=== PATIENT | female | born 1960 | race American Indian/Alaskan Native ===

== ENCOUNTER 2018-07-18 02:42 | Emergency (ER) | payer MEDICARE ==
--- NOTE | 2018-07-18 02:50 | ED PDOC ---
Arrival/HPI - General Time Seen by Provider: 07/18/18 02:45 Historian: Patient - History of Present Illness Narrative History of Present Illness (Text): 07/18/18 02:50 Carrie Braxton is a 58 year old female, whose past medical history includes hypertension, CAD, anemia, asthma, and alcohol abuse, who presents to the Emergency department brought in by EMS status post mechanical fall. Patient states she was walking when she slipped on fell on to her left knee. Patient also reports she hit her head. Patient now complaining of left knee pain. Patient denies any loss of consciousness, headache, dizziness, vision changes, weakness/numbness/tingling in the extremity, decreased range of motion, difficulty ambulating, other trauma/injury, or any other complaints. Symptom Onset: Gradual Symptom Course: Unchanged Activities at Onset: Light Context: Walking, Slipped Past Medical History - Provider Review Nursing Documentation Reviewed: Yes - Infectious Disease Hx of Infectious Diseases: None - Cardiac Hx Coronary Artery Disease: Yes Hx Hypertension: Yes Hx Mitral Valve Prolapse: Yes (VALVE REPLACEMENT) - Pulmonary Hx Asthma: Yes Hx Chronic Obstructive Pulmonary Disease (COPD): Yes - Neurological Hx Seizures: No - Hematological/Oncological Hx Anemia: Yes - Musculoskeletal/Rheumatological Hx Fractures: Yes (broken ankles; one in 2013, one in 2014) - Gastrointestinal Hx Gastroesophageal Reflux: Yes - Genitourinary/Gynecological Hx Sexually Transmitted Diseases: No - Psychiatric Hx Substance Use: No - Surgical History Hx Coronary Artery Bypass Graft: Yes - Anesthesia Hx Anesthesia: Yes Hx Anesthesia Reactions: No Hx Malignant Hyperthermia: No - Suicidal Assessment Feels Threatened In Home Enviroment: No Family/Social History - Physician Review Nursing Documentation Reviewed: Yes Family/Social History: Unknown Family HX Smoking Status: Former Smoker Hx Alcohol Use: Yes Hx Substance Use: No Allergies/Home Meds Allergies/Adverse Reactions: Allergies No Known Allergies Allergy (Verified 06/15/18 22:18) Home Medications: Home Meds Medication Instructions Recorded Confirmed amLODIPine [Norvasc] 5 mg PO DAILY 09/14/17 03/20/18 Aspirin [Ecotrin] 81 mg PO DAILY 03/20/18 03/20/18 Folic Acid 1 mg PO DAILY 03/20/18 03/20/18 Losartan/Hydrochlorothiazide 1 each PO DAILY 03/20/18 03/20/18 [Losartan-Hctz 50-12.5 mg Tab] Multivitamins [Hexavitamin] 1 tab PO DAILY 03/20/18 03/20/18 Pantoprazole [Protonix EC Tab] 40 mg PO DAILY 03/20/18 03/20/18 Pravastatin Sodium 40 mg PO DAILY 03/20/18 03/20/18 Thiamine [Vitamin B1 Tab] 100 mg PO DAILY 03/20/18 03/20/18 Review of Systems - Physician Review All systems were reviewed & negative as marked: Yes - Review of Systems Constitutional: Normal. absent: Fevers Eyes: Normal ENT: Normal Respiratory: Normal. absent: SOB, Cough Cardiovascular: Normal. absent: Chest Pain Gastrointestinal: Normal. absent: Abdominal Pain, Diarrhea, Nausea, Vomiting Genitourinary Female: Normal. absent: Dysuria, Frequency, Hematuria, Urine Output Changes Musculoskeletal: Arthralgias (+left knee pain). absent: Back Pain, Neck Pain Skin: Normal. absent: Rash Neurological: Normal. absent: Headache, Dizziness Endocrine: Normal Hemo/Lymphatic: Normal Psychiatric: Normal Physical Exam Vital Signs Reviewed: Yes Temperature: Afebrile Blood Pressure: Normal Pulse: Regular Respiratory Rate: Normal Appearance: Positive for: Well-Appearing, Non-Toxic, Comfortable Pain Distress: None Mental Status: Positive for: Alert and Oriented X 3 - Systems Exam Head: Present: Atraumatic, Normocephalic Pupils: Present: PERRL Extroacular Muscles: Present: EOMI Conjunctiva: Present: Normal Mouth: Present: Moist Mucous Membranes Neck: Present: Normal Range of Motion Respiratory/Chest: Present: Clear to Auscultation, Good Air Exchange. No: Respiratory Distress, Accessory Muscle Use Cardiovascular: Present: Regular Rate and Rhythm, Normal S1, S2. No: Murmurs Abdomen: No: Tenderness, Distention, Peritoneal Signs Back: Present: Normal Inspection Upper Extremity: Present: Normal Inspection. No: Cyanosis, Edema Lower Extremity: Present: NORMAL PULSES, Normal ROM, Tenderness (Mild discomfort with left knee flexion), Neurovascularly Intact, Capillary Refill < 2 s, Other (Old scabbed wound to left knee skin surface). No: Edema, Cyanosis, Swelling, Erythema, Deformity, Temperature Abnormalties Neurological: Present: GCS=15, CN II-XII Intact, Speech Normal Skin: Present: Warm, Dry, Normal Color. No: Rashes Psychiatric: Present: Alert, Oriented x 3, Normal Insight, Normal Concentration Medical Decision Making ED Course and Treatment: 07/18/18 02:50 Impression: 58 year old female complaining of left knee pain s/p fall. Plan: -- CT Head w/o contrast -- XR Left Knee -- Reassess and disposition Prior Visits: Notes and results from previous visits were reviewed. Progress Notes: 07/18/18 05:13 Reviewed radioogy, CT Head: There is normal configuration of sella turcica. There are no intra or extra- axial collections. There is no mass effect or midline shift. There is no evidence of hematoma formation. No hydrocephalus is present. The ventricles are symmetrical. No abnormal calcifications are present. There is diffuse age-appropriate cerebellar and cerebral atrophy with proportionally dilated ventricles and cortical sulci. There are bilateral periventricular and subcortical white matter hypolucencies compatible with mild chronic microvascular disease. Otherwise, no significant focal abnormalities are seen either in the posterior fossa or supratentorial compartment. Moderate chronic mucosal inflammatory changes of ethmoid air cells. IMPRESSION: 1. Age-appropriate cerebellar and cerebral atrophy. 2. Mild chronic microvascular disease. 3. No evidence of acute intracranial pathology. Thank you for your kind referral of this patient. Electronically signed on Jul 18, 2018 4:11:45 AM EST by: Juanita Hackett M.D., Certified by AKTALINA MORGAN, Neuroradiology XR Left Knee: Findings: There are tricompartmental changes of degenerative joint disease. Findings are demonstrated by joint space narrowing, osteophyte formation and subchondral sclerosis. No fracture or dislocation is seen. No lytic or blastic lesion is appreciated. There is mild suprapatellar knee joint effusion. There is no evidence radiopaque foreign body. Ligamentous calcification is noted at the femoral insertion of the medial collateral ligament. Mild prepatellar/infrapatellar soft tissue edema. Impression: No radiographic evidence of acute bone pathology. Electronically signed on Jul 18, 2018 5:05:11 AM EST by: Juanita Hackett M.D., Certified by KATALINA MORGAN, Neuroradiology - RAD Interpretation Air Analysis Technician: ED Physician, Radiologist - Scribe Statement The provider has reviewed the documentation as recorded by the Carisa Parra Provider Scribe Attestation: All medical record entries made by the Scribe were at my direction and personally dictated by me. I have reviewed the chart and agree that the record accurately reflects my personal performance of the history, physical exam, medical decision making, and the department course for this patient. I have also personally directed, reviewed, and agree with the discharge instructions and disposition. Disposition/Present on Arrival - Present on Arrival Any Indicators Present on Arrival: No History of DVT/PE: No History of Uncontrolled Diabetes: Yes Urinary Catheter: No History of Decub. Ulcer: No History Surgical Site Infection Following: None - Disposition Have Diagnosis and Disposition been Completed?: Yes Diagnosis: Knee strain, Minor head injury Disposition: HOME/ ROUTINE Disposition Time: 06:00 Patient Plan: Discharge Condition: STABLE Discharge Instructions (ExitCare): Muscle Strain (DC), Minor Head Injury (DC) Additional Instructions: Rest/no strenuous physical activity/follow up with your doctor Referrals: Radha Valiente MD [Primary Care Provider] - Follow up with primary
[2018-07-18 02:58] VITALS: TEMP 97.8; BMI 20.1
[2018-07-18 06:24] VITALS: BP 126/87; PULSE 72; RESP 14; O2SAT 100
--- NOTE | 2018-07-18 09:05 | CT ---
Date of service: 07/18/2018 PROCEDURE: CT HEAD WITHOUT CONTRAST. HISTORY: injury COMPARISON: None available. TECHNIQUE: Axial computed tomography images were obtained through the head/brain without intravenous contrast. Radiation dose: Total exam DLP = 723.47 mGy-cm. This CT exam was performed using one or more of the following dose reduction techniques: Automated exposure control, adjustment of the mA and/or kV according to patient size, and/or use of iterative reconstruction technique. FINDINGS: HEMORRHAGE: No intracranial hemorrhage. BRAIN: No mass effect or edema. There is moderate atrophy especially in the cerebellum. VENTRICLES: Unremarkable. No hydrocephalus. CALVARIUM: Unremarkable. PARANASAL SINUSES: Unremarkable as visualized. No significant inflammatory changes. MASTOID AIR CELLS: Unremarkable as visualized. No inflammatory changes. OTHER FINDINGS: The report concurs with the preliminary [facility] report IMPRESSION: No acute findings
--- NOTE | 2018-07-18 12:45 | RAD ---
Date of service: 07/18/2018 PROCEDURE: Left Knee Radiographs. HISTORY: Pain. COMPARISON: None. FINDINGS: BONES: Normal. No fracture. JOINTS: Normal. No osteoarthritis. JOINT EFFUSION: None. OTHER FINDINGS: There is calcification of the attachment of the medial collateral ligament. The report concurs with the preliminary [facility] report IMPRESSION: No acute findings
== END 2018-07-18 06:23 | disposition home or self-care (01) ==
LOC: ED 02:42
DX: S09.90XA Unspecified injury of head, initial encounter (principal); S86.912A Strain of unspecified muscle(s) and tendon(s) at lower leg level, left leg, initial encounter; W01.0XXA Fall on same level from slipping, tripping and stumbling without subsequent striking against object, initial encounter; I10 Essential (primary) hypertension; I25.10 Atherosclerotic heart disease of native coronary artery without angina pectoris; Z87.891 Personal history of nicotine dependence

== ENCOUNTER 2018-07-24 11:49 | Emergency (ER) | payer MEDICARE ==
[2018-07-24 11:50] VITALS: BMI 20.1
[2018-07-24 12:03] VITALS: RESP 18; TEMP 97.6
--- NOTE | 2018-07-24 13:42 | RAD ---
Date of service: 07/24/2018 PROCEDURE: Bilateral Knee Radiographs. HISTORY: Knee pain s/p trauma COMPARISON: None. FINDINGS: BONES: No evidence of acute displaced fracture nor dislocation. The osseous structures appear intact. 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 JOINTS: Tiny right-sided posterior patella osteophyte formation.. Joint spaces relatively preserved SOFT TISSUES: Mild right and minimal left prepatellar soft tissue swelling. Vascular calcifications are present bilaterally. JOINT EFFUSION: Suspect trace bilateral joint effusions. OTHER FINDINGS: None. IMPRESSION: No acute fractures. There is mild right and minimal left-sided prepatellar soft tissue swelling. 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
--- NOTE | 2018-07-24 13:43 | RAD ---
Date of service: 07/24/2018 PROCEDURE: HISTORY: right hip pain s/p trauma COMPARISON: No prior study available for comparison TECHNIQUE: Frontal view of the pelvis and frontal/frogleg lateral views both hips performed. FINDINGS: No evidence of acute displaced fracture nor dislocation. The osseous structures intact. Both femoral heads appropriately located within the respective acetabula. Joint spaces relatively preserved IMPRESSION: No acute fracture seen. If symptoms persist or occult fracture suspected clinically, consider follow-up CT scan
--- NOTE | 2018-07-24 13:56 | ED PDOC ---
Arrival/HPI - General Chief Complaint: Lower Extremity Problem/Injury Time Seen by Provider: 07/24/18 11:58 Historian: Patient - History of Present Illness Narrative History of Present Illness (Text): 07/24/18 13:51 58yo female with history of alcohol abuse bib EMS for complaint of right knee/hip pain x 5days. Patient notes that pain started s/p a fall. States she did not see any doctor for the pain. States she called EMS for the persistent pain. She did not take any medication for the pain. Able to ambulate with a cane. Denies calf pain, focal weakness, paresthesia, any other complaint. Past Medical History - Provider Review Nursing Documentation Reviewed: Yes - Infectious Disease Hx of Infectious Diseases: None - Cardiac Hx Hypertension: Yes Hx Mitral Valve Prolapse: Yes (VALVE REPLACEMENT) - Pulmonary Hx Asthma: Yes Hx Chronic Obstructive Pulmonary Disease (COPD): Yes - Neurological Hx Seizures: No - Hematological/Oncological Hx Anemia: Yes - Musculoskeletal/Rheumatological Hx Fractures: Yes (broken ankles; one in 2013, one in 2014) - Gastrointestinal Hx Gastroesophageal Reflux: Yes - Genitourinary/Gynecological Hx Sexually Transmitted Diseases: No - Psychiatric Hx Substance Use: No - Surgical History Hx Coronary Artery Bypass Graft: Yes - Anesthesia Hx Anesthesia: Yes Hx Anesthesia Reactions: No Hx Malignant Hyperthermia: No - Suicidal Assessment Feels Threatened In Home Enviroment: No Family/Social History - Physician Review Nursing Documentation Reviewed: Yes Family/Social History: Unknown Family HX Smoking Status: Former Smoker Hx Alcohol Use: Yes Frequency of alcohol use: Daily Hx Substance Use: No Allergies/Home Meds Allergies/Adverse Reactions: Allergies No Known Allergies Allergy (Verified 07/24/18 11:53) Home Medications: Home Meds Medication Instructions Recorded Confirmed RX: amLODIPine [Norvasc] 5 mg PO DAILY 09/14/17 03/20/18 RX: Aspirin [Ecotrin] 81 mg PO DAILY 03/20/18 03/20/18 RX: Folic Acid 1 mg PO DAILY 03/20/18 03/20/18 RX: Losartan/Hydrochlorothiazide 1 each PO DAILY 03/20/18 03/20/18 [Losartan-Hctz 50-12.5 mg Tab] RX: Multivitamins [Hexavitamin] 1 tab PO DAILY 03/20/18 03/20/18 RX: Pantoprazole [Protonix EC Tab] 40 mg PO DAILY 03/20/18 03/20/18 RX: Pravastatin Sodium 40 mg PO DAILY 03/20/18 03/20/18 RX: Thiamine [Vitamin B1 Tab] 100 mg PO DAILY 03/20/18 03/20/18 Review of Systems - Physician Review All systems were reviewed & negative as marked: Yes - Review of Systems Constitutional: Normal Eyes: Normal ENT: Normal Respiratory: Normal Cardiovascular: Normal Gastrointestinal: Normal Genitourinary Female: Normal Musculoskeletal: Arthralgias (Right hip/knee pain) Skin: Normal Neurological: Normal Endocrine: Normal Hemo/Lymphatic: Normal Psychiatric: Normal Physical Exam Vital Signs Reviewed: Yes Vital Signs Temp Pulse Resp BP Pulse Ox 07/24/18 12:02 97.6 F 89 18 134/72 95 Temperature: Afebrile Blood Pressure: Normal Pulse: Regular Respiratory Rate: Normal Appearance: Positive for: Well-Appearing, Non-Toxic, Comfortable Pain Distress: None Mental Status: Positive for: Alert and Oriented X 3 - Systems Exam Head: Present: Atraumatic, Normocephalic Pupils: Present: PERRL Extroacular Muscles: Present: EOMI Conjunctiva: Present: Normal Mouth: Present: Moist Mucous Membranes Neck: Present: Normal Range of Motion Respiratory/Chest: Present: Clear to Auscultation, Good Air Exchange. No: Respiratory Distress, Accessory Muscle Use Cardiovascular: Present: Regular Rate and Rhythm, Normal S1, S2. No: Murmurs Abdomen: No: Tenderness, Distention, Peritoneal Signs Back: Present: Normal Inspection Upper Extremity: Present: Normal Inspection. No: Cyanosis, Edema Lower Extremity: Present: NORMAL PULSES, Normal ROM (with pain on all planes), Tenderness (right knee/lateral hip), Neurovascularly Intact. No: Edema, Swelling, Deformity, Temperature Abnormalties Neurological: Present: GCS=15, CN II-XII Intact, Speech Normal Skin: Present: Warm, Dry, Normal Color. No: Rashes Psychiatric: Present: Alert, Oriented x 3, Normal Insight, Normal Concentration Medical Decision Making ED Course and Treatment: 07/25/18 18:17 58yo female present to ED for stated history. She was ambulatory with a cane in ED which is her baseline. B/L right knee xray - IMPRESSION: No acute fractures. There is mild right and minimal left-sided prepatellar soft tissue swelling. 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 Hip xray IMPRESSION: No acute fracture seen. If symptoms persist or occult fracture suspected clinically, consider follow-up CT scan Result was DW the pt and she was DC home with ibuprofen. Referred to her PMD - RAD Interpretation Radiology Orders: 07/24/18 12:15 Hip Bilateral [HIP MIN 3V W/ PELVIS JOSE] [RAD] Stat KNEE W PATELLA BILAT 3 VIEW [RAD] Stat - Medication Orders Current Medication Orders: Discontinued Medications Ibuprofen (Motrin Tab) 400 mg PO STAT STA Stop: 07/24/18 12:17 Last Admin: 07/24/18 13:00 Dose: 400 mg MAR Pain/Vitals Document 07/24/18 13:00 VINICIO (Rec: 07/24/18 13:36 [facility] [id number]) Pain Reassessment Is This A Pain ReAssessment? No Sleep Is patient sleeping during reassessment? No Presence of Pain Presence of Pain Yes Disposition/Present on Arrival - Present on Arrival Any Indicators Present on Arrival: No History of DVT/PE: No History of Uncontrolled Diabetes: Yes Urinary Catheter: No History of Decub. Ulcer: No History Surgical Site Infection Following: None - Disposition Have Diagnosis and Disposition been Completed?: Yes Diagnosis: Leg pain Disposition: HOME/ ROUTINE Disposition Time: 14:10 Patient Plan: Discharge Condition: STABLE Discharge Instructions (ExitCare): Muscle and Bone Pain (DC) Additional Instructions: Follow up with your Doctor Return to ED for any new or worsening symptoms Prescriptions: RX: Ibuprofen [Motrin Tab] 600 mg PO Q6 #15 tab Referrals: Stephon Priest DO [Staff Provider] - Follow up with primary Forms: [employer] (Serbian)
[2018-07-24 15:28] VITALS: BP 127/72; PULSE 78; O2SAT 99
== END 2018-07-24 15:29 | disposition home or self-care (01) ==
LOC: ED 11:49
DX: M79.604 Pain in right leg (principal)

== ENCOUNTER 2018-09-10 14:44 | Emergency (ER) | payer MEDICARE ==
[2018-09-10 14:45] VITALS: BMI 20.3
[2018-09-10 15:02] VITALS: O2SAT 96
--- NOTE | 2018-09-10 15:32 | ED PDOC ---
Arrival/HPI - General Chief Complaint: Alcohol Ingestion Time Seen by Provider: 09/10/18 14:49 Historian: Patient - History of Present Illness Narrative History of Present Illness (Text): 09/10/18 15:29 A 58 year old female presents to the emergency department for intoxication. Limited HPI and ROS due to patient being intoxicated, making her a poor historian. Past Medical History - Provider Review Nursing Documentation Reviewed: Yes - Infectious Disease Hx of Infectious Diseases: None - Reproductive Menopause: Yes - Cardiac Hx Hypertension: Yes Hx Mitral Valve Prolapse: Yes (valve replacement) - Pulmonary Hx Asthma: Yes Hx Chronic Obstructive Pulmonary Disease (COPD): Yes - Neurological Hx Seizures: No - HEENT Hx HEENT Disorder: No - Renal Hx Renal Disorder: No - Hematological/Oncological Hx Anemia: Yes - Musculoskeletal/Rheumatological Hx Fractures: Yes (ankle fxs) - Gastrointestinal Hx Gastroesophageal Reflux: Yes - Genitourinary/Gynecological Hx Sexually Transmitted Diseases: No - Psychiatric Hx Substance Use: No - Surgical History Hx Coronary Artery Bypass Graft: Yes - Anesthesia Hx Anesthesia: Yes Hx Anesthesia Reactions: No Hx Malignant Hyperthermia: No - Suicidal Assessment Feels Threatened In Home Enviroment: No Family/Social History - Physician Review Nursing Documentation Reviewed: Yes Family/Social History: No Known Family HX Smoking Status: Current Some Days Smoker Hx Alcohol Use: Yes Hx Substance Use: No Allergies/Home Meds Allergies/Adverse Reactions: Allergies No Known Allergies Allergy (Verified 07/24/18 11:53) Home Medications: Home Meds Medication Instructions Recorded Confirmed amLODIPine [Norvasc] 5 mg PO DAILY 09/14/17 03/20/18 Aspirin [Ecotrin] 81 mg PO DAILY 03/20/18 03/20/18 Folic Acid 1 mg PO DAILY 03/20/18 03/20/18 Losartan/Hydrochlorothiazide 1 each PO DAILY 03/20/18 03/20/18 [Losartan-Hctz 50-12.5 mg Tab] Multivitamins [Hexavitamin] 1 tab PO DAILY 03/20/18 03/20/18 Pantoprazole [Protonix EC Tab] 40 mg PO DAILY 03/20/18 03/20/18 Pravastatin Sodium 40 mg PO DAILY 03/20/18 03/20/18 Thiamine [Vitamin B1 Tab] 100 mg PO DAILY 03/20/18 03/20/18 Review of Systems - Review of Systems Systems not reviewed;Unavailable: Intoxicated Physical Exam - Physical Exam Narrative Physical Exam (Text): Gen: NAD, uncooperative, intoxicated, alcohol to breath, slurred speech. Head: NCAT. HEENT: EYES: PERRL, EOMI, conjunctiva clear, MOUTH: moist MM, posterior pharynx without erythema or exudate, uvula midline. CV: (+) S1S2, RRR, no M/G/R LUNGS: CTA B/L, No W/R/R, good air movement Abd: Soft, NTTP, no guarding, rebound or rigidity. Neuro: intoxicated, GCS 15, CN 2-12 intact, motor and sensory grossly intact, 5/5 muscle strength B/L UE's and LE's. ext: no cyanosis or edema Vital Signs Reviewed: Yes Vital Signs Temp Pulse Resp BP Pulse Ox 09/10/18 14:55 98.2 F 66 16 138/88 96 Temperature: Afebrile Blood Pressure: Normal Pulse: Regular Appearance: Positive for: Other (uncooperative, smells of EtOH) Medical Decision Making ED Course and Treatment: 09/10/18 15:32 Impression: 58 year old female with intoxication. Plan: -- Reassess and disposition Progress Notes: 09/10/18 18:37 Patient awake and alert, oriented x3, speech clear and coherent. She is given a food tray. Patient now more cooperative, denies any complaints. Patient states she normally ambulates w/a cane and cane is at motel. 09/10/18 18:48 Patient ambulated in ED w/assistance from EMT. Patient states she is at her baseline w/ambulation. Patient is stable for discharge. Plan provide cane and d/c. Patient agreeable w/POC. - Scribe Statement The provider has reviewed the documentation as recorded by the Carisa Ulloa Provider Scribe Attestation: All medical record entries made by the Johnnyibxenia were at my direction and personally dictated by me. I have reviewed the chart and agree that the record accurately reflects my personal performance of the history, physical exam, medical decision making, and the department course for this patient. I have also personally directed, reviewed, and agree with the discharge instructions and disposition. Disposition/Present on Arrival - Present on Arrival Any Indicators Present on Arrival: Yes History of DVT/PE: No History of Uncontrolled Diabetes: Yes Urinary Catheter: No History of Decub. Ulcer: No History Surgical Site Infection Following: None - Disposition Have Diagnosis and Disposition been Completed?: Yes Diagnosis: Alcohol intoxication Disposition: HOME/ ROUTINE Disposition Time: 19:10 Condition: IMPROVED Discharge Instructions (ExitCare): Alcohol Abuse and Alcoholism (DC) Referrals: María Lee MD [Medical Doctor] - Follow up with primary [facility] [place] - Follow up with primary Forms: [employer] (Lao)
[2018-09-10 19:17] VITALS: BP 142/76; PULSE 96; RESP 20; TEMP 97
== END 2018-09-10 19:30 | disposition home or self-care (01) ==
LOC: ED 14:44
DX: F10.129 Alcohol abuse with intoxication, unspecified (principal); I10 Essential (primary) hypertension; J44.9 Chronic obstructive pulmonary disease, unspecified